=== PATIENT | male | born 2000 | race Caucasian/White ===

== ENCOUNTER 2021-04-29 19:33 | Emergency (ER) | payer BC, SELFPAY ==
[2021-04-29 19:40] VITALS: BP 120/70; PULSE 68; RESP 18; TEMP 36.7; O2SAT 100
--- NOTE | 2021-04-29 19:52 | ED.GENADUL_ITS ---
Discharge Plan Disposition Patient Disposition: HOME Condition: Stable Discharge Details Clinical Impression: Elbow pain, right, Epicondylitis syndrome of elbow Primary Care Provider: Unknown,Unknown ED Provider: Rayo Martinez Home Meds and New Rx's Prescriptions: No Action No Known Home Meds RF: 0 Discharge Instructions Additional Instructions: You are likely suffering from inflammation of the tendons you can take 1000mg tylenol and 600mg ibuprofen every 6 hours for pain as needed follow up as scheduled with orthopedics if you feel more ill, have fevers or difficulty breathing return to the emergency department Medical Decision Making 20 yo with no chronic medical problems comes in with right elbow pain starting earlier this week. He plays for a baseball team and states he has had discomfort in the elbow for awhile but has increased the past few days when throwing a ball. He states he went to [place] [facility] and states he had an xray this week that showed no concerning findings per the patient and is scheduled to see ortho and have an mri this week. He has no swelling or visible/palpable deformity of the elbow and localizes it to the medial part of the elbow. He has tenderness over the medial epicondyle and pain with forced flexion and pronation of the forearm and wrist and intact distal sensation and range of motion and normal pulses. No tenderness of the shoulder. His exam is consistent with likely epicondylitits. Has not tried nsaids. Offered to do another xray which he declined and I feel is reasonable given no falls or trauma and has had an xray already that was unremarkable. Advised to keep his appointment with ortho and dosing for nsaids/tylenol given and return precautions given Differential Diagnosis Differential Diagnosis: overuse, tendonitis, epicondylitits HPI General Date/Time Provider Initiated Documentation: 04/29/21 19:35 . History of Present Illness 20 year old M presents to the emergency department with the chief complaint of right elbow pain, described as moderate, Quality is described as aching, and is localized to the right and upper extremity. Patient reports no radiation. Patient started experiencing this day(s) (3) and it has been constant. No relieving factors improve symptom(s), and Rest improves symptom(s), Movement worsens symptoms . Patient notes no other symptoms.. Patient did receive the following treatments prior to arrival, other (tylenol) Related Data Home Medications Medication Instructions Recorded Confirmed Unknown [No Known Home Meds] 04/29/21 04/29/21 Allergies Allergy/AdvReac Type Severity Reaction Status Date / Time No Known Allergies Allergy Unverified 04/29/21 19:44 General Stated Complaint: Orthopedic SOWMYA: 4 Review of Systems All systems reviewed & are unremarkable except as noted in HPI and below Constitutional Constitutional: Denies chills, Denies fever(s) and Denies weakness Cardiovascular Cardiovascular: Denies chest pain and Denies dyspnea Respiratory Respiratory: Denies cough and Denies dyspnea Gastrointestinal Gastrointestinal: Denies abdominal pain, Denies nausea and Denies vomiting Neurologic Neurologic: Denies weakness PFSH All Active Problems (Updated 04/29/21 @ 19:55 by Rayo Martinez MD) Elbow pain, right (Acute) Epicondylitis syndrome of elbow (Acute) Social History Smoking/Tobacco Use Status: Never Smoking risk assessment performed?: Yes Alcohol Intake: never Drug use: Never Substance use type: does not use Do you feel safe at home: Yes Do you feel safe in your relationship?: Yes Exam Const General: no acute distress Orientation: alert HENMT Head: normal to inspection Ears: external ears normal General nose exam: external nose normal Mouth: moist mucous membranes Eyes General: appearance normal, both eyes and all related structures Neck Neck: normal visual inspection Resp Effort & Inspection: normal respiratory effort and able to speak in complete sentences Cardio Rate: regular rate Skin General skin exam: no rashes or lesions noted Neuro General: patient alert and patient oriented x3 Extrem General: normal to inspection Psych Mental Status: mental status grossly normal Course Vital Signs Vital signs: Vital Signs Temperature 36.7 C 04/29/21 19:40 Pulse 68 04/29/21 19:40 Respiratory Rate 18 04/29/21 19:40 Blood Pressure 120/70 04/29/21 19:40 Pulse Oximetry 100 04/29/21 19:40 Temperature 36.7 C 04/29/21 19:40 Temperature Source Tympanic 04/29/21 19:40 Pulse 68 04/29/21 19:40 Respiratory Rate 18 04/29/21 19:40 Respiratory Effort 04/29/21 19:42 Blood Pressure 120/70 04/29/21 19:40 Blood Pressure Position Supine 04/29/21 19:40 Pulse Oximetry 100 04/29/21 19:40 Oxygen Delivery Method Room Air 04/29/21 19:40 Oxygen Flow Rate 0 04/29/21 19:40 Pain Level 9 04/29/21 19:40
[2021-04-29] MEDS: Ibuprofen 600 MG TAB PO (20:01)
== END 2021-04-29 20:05 | disposition home or self-care (01) ==
PROVIDERS: Emergency Provider Emergency Medicine
DX: M25.521 Pain in right elbow (principal); M77.01 Medial epicondylitis, right elbow
CPT/HCPCS: 99282

== ENCOUNTER 2022-11-22 10:04 | Emergency (ER) | payer BC, SELFPAY ==
[2022-11-22 10:09] VITALS: BP 124/81; PULSE 61; RESP 20; TEMP 36.8; O2SAT 99
--- NOTE | 2022-11-22 10:26 | ED.GENADUL_ITS ---
Discharge Plan Disposition Patient Disposition: Home Condition: Stable Discharge Details Clinical Impression: Acute pain of left shoulder Primary Care Provider: Unknown,Unknown ED Provider: Daniel Israel Home Meds and New Rx's Prescriptions: No Action No Known Home Meds Discharge Instructions Instructions: Shoulder Pain (ED) Additional Instructions: Please use sling for the next 1 week. Take your arm out of the sling at least 4 times a day to perform pendulum exercises as reviewed. Rest your arm until complete resolution of symptoms. No sports. Please take ibuprofen over the counter. Take 600mg by mouth every 6 hours as needed for pain. Please take acetaminophen (tylenol) - 650mg every 6 hours by mouth as needed for pain. Please contact your primary care physician to arrange follow-up. Return to the ER immediately for any worsening or new concerning symptoms. Diagnostic studies were not performed today but may be necessary if pain does not improve as expected. Medical Decision Making 22-year-old male with a prior presents with chief complaint of left shoulder pain that started after weightlifting 2 days ago. Patient notes he was bench pressing but does not recall any specific injury to his shoulder. No direct trauma. Later that night he developed pain in his shoulder that has persisted. Pain is worse with movement. No associated numbness or tingling. No fever. No other joint pain. Patient is tender on palpation of the shoulder and has pain with range of motion. No other inflammatory changes. Suspect rotator cuff injury versus sprain strain versus other. Plan for supportive care including rest with sling as well as NSAIDs and ice. Patient was encouraged to remove shoulder from sling and perform pendulum exercises which were reviewed with him. He was advised to not play sports or participate in any activities that worsen pain until completely resolved. Diagnostic imaging not indicated at this time. Patient understands that if pain does not improve as expected additional diagnostic testing may be necessary. He was encouraged to return immediately should have any worsening or new concerning symptoms. HPI General Mode of arrival: ambulatory . Date/Time Provider Initiated Documentation: 11/22/22 10:16 . Limitations to Documentation: no limitations . Information obtained by: patient . History of Present Illness 22 year old M presents to the emergency department with the chief complaint of left shoulder pain, described as moderate, Quality is described as sharp, and is localized to the left. Patient reports no radiation. Patient started experiencing this day(s) (1) and it has been constant. Movement improves symptom(s), No exacerbating factors reported . Patient notes no other symptoms.. Patient did receive the following treatments prior to arrival, NSAID (3am) Related Data Home Medications Medication Instructions Recorded Confirmed Unknown [No Known Home Meds] 04/29/21 11/22/22 Allergies Allergy/AdvReac Type Severity Reaction Status Date / Time No Known Allergies Allergy Unverified 11/22/22 10:12 General Stated Complaint: Orthopedic SOWMYA: 4 Review of Systems Constitutional Constitutional: Denies weakness Musculoskeletal Musculoskeletal: Reports as per HPI Neurologic Neurologic: Denies sensory deficit and Denies weakness PFSH All Active Problems Acute pain of left shoulder (Acute) Social History Smoking/Tobacco Use Status: Never Smoking risk assessment performed?: Yes Alcohol Intake: never Drug use: Never Substance use type: does not use Do you feel safe at home: Yes Do you feel safe in your relationship?: Yes Exam Const General: cooperative and healthy appearing Orientation: alert and awake Cardio Rate: regular rate Rhythm: regular rhythm Pulses: radial pulses present Skin General skin exam: no rashes or lesions noted (LUE) Extrem Left upper extremity: shoulder/upper arm Details: tenderness (over lateral shoulder), axillary nerve sensory function normal and abnormal ROM Details: pain with active ROM Details: in ABduction and in internal rotation; no unsual warmth, elbow/forearm Details: normal to inspection, wrist Details: normal to inspection and hand Details: normal to inspection Course Vital Signs Vital signs: Vital Signs Temperature 36.8 C 11/22/22 10:09 Pulse 61 11/22/22 10:09 Respiratory Rate 20 11/22/22 10:09 Blood Pressure 124/81 11/22/22 10:09 Pulse Oximetry 99 11/22/22 10:09 Temperature 36.8 C 11/22/22 10:09 Temperature Source Oral 11/22/22 10:09 Pulse 61 11/22/22 10:09 Respiratory Rate 20 11/22/22 10:09 Respiratory Effort Normal 11/22/22 10:13 Blood Pressure 124/81 11/22/22 10:09 Blood Pressure Position Sitting 11/22/22 10:09 Pulse Oximetry 99 11/22/22 10:09 Oxygen Delivery Method Room Air 11/22/22 10:09 Oxygen Flow Rate 0 11/22/22 10:09 Pain Level 8 11/22/22 10:13
[2022-11-22] MEDS: Ibuprofen 600 MG TAB PO (10:42)
[2022-11-22] MEDS: Acetaminophen 325 MG TAB 650 MG PO (10:42)
== END 2022-11-22 11:02 | disposition home or self-care (01) ==
PROVIDERS: Emergency Provider Student in an Organized Health Care Education/Training Program
DX: M25.512 Pain in left shoulder (principal)
CPT/HCPCS: 99282; 99283

== ENCOUNTER 2023-06-18 11:15 | Emergency (ER) | payer BC, SELFPAY ==
[2023-06-18 11:19] VITALS: BP 131/54; PULSE 67; RESP 18; TEMP 36.4; O2SAT 99
--- NOTE | 2023-06-18 11:55 | ED.GENADUL_ITS ---
Discharge Plan Disposition Patient Disposition: Home Condition: Stable Discharge Details Clinical Impression: Laryngitis Primary Care Provider: Unknown,Unknown ED Provider: Rayo Martinez Home Meds and New Rx's Prescriptions: New prednisone 20 mg tablet 60 mg PO DAILY 4 Days Qty: 12 0RF amoxicillin 500 mg tablet 500 mg PO BID Qty: 20 0RF Discharge Instructions Additional Instructions: If you are not improving with the 2 medications in 1 week follow-up with your primary care provider If you feel more ill, have severe worsening pain or inability to swallow liquids return to the emergency department HPI General Mode of arrival: ambulatory . Date/Time Provider Initiated Documentation: 06/18/23 11:39 . Limitations to Documentation: no limitations . Information obtained by: patient . History of Present Illness 22 year old M presents to the emergency department with the chief complaint of hoarse voice, described as moderate, Patient started experiencing this week(s) (2) and it has been constant. No relieving factors improve symptom(s), No exacerbating factors reported . Patient notes no other symptoms.; denies chest pain and fever/chills. Patient did receive the following treatments prior to arrival, none Related Data Home Medications Medication Instructions Recorded Confirmed amoxicillin 500 mg tablet 500 mg PO BID #20 tabs 06/18/23 prednisone 20 mg tablet 60 mg (3 x 20 mg) PO DAILY 4 days 06/18/23 #12 tabs Previous Rx's Medication Instructions Recorded amoxicillin 500 mg tablet 500 mg PO BID #20 tabs 06/18/23 prednisone 20 mg tablet 60 mg (3 x 20 mg) PO DAILY 4 days 06/18/23 #12 tabs Allergies Allergy/AdvReac Type Severity Reaction Status Date / Time No Known Allergies Allergy Unverified 06/18/23 11:21 General Stated Complaint: Sorethroat SOWMYA: 4 Review of Systems All systems reviewed & are unremarkable except as noted in HPI and below Constitutional Constitutional: Denies chills, Denies fever(s) and Denies weakness Cardiovascular Cardiovascular: Denies chest pain and Denies dyspnea Respiratory Respiratory: Denies cough and Denies dyspnea Gastrointestinal Gastrointestinal: Denies abdominal pain, Denies nausea and Denies vomiting Genitourinary Genitourinary: Denies dysuria Musculoskeletal Musculoskeletal: Denies joint swelling Integumentary/Breasts Skin/Breast: Denies rash Neurologic Neurologic: Denies weakness Exam Const General: no acute distress Orientation: alert HENMT Head: normal to inspection Ears: external ears normal and TM's normal bilaterally General nose exam: external nose normal Mouth: moist mucous membranes Throat: uvula midline Eyes General: appearance normal, both eyes and all related structures Neck Neck: normal visual inspection Resp Effort & Inspection: normal respiratory effort and able to speak in complete sentences Cardio Rate: regular rate Skin General skin exam: no rashes or lesions noted Neuro General: patient alert and patient oriented x3 Extrem General: normal to inspection Psych Mental Status: mental status grossly normal Course Vital Signs Vital signs: Vital Signs Temperature 36.4 C L 06/18/23 11:19 Pulse 67 06/18/23 11:19 Respiratory Rate 18 06/18/23 11:19 Blood Pressure 131/54 L 06/18/23 11:19 Pulse Oximetry 99 06/18/23 11:19 Temperature 36.4 C L 06/18/23 11:19 Pulse 67 06/18/23 11:19 Respiratory Rate 18 06/18/23 11:19 Blood Pressure 131/54 L 06/18/23 11:19 Blood Pressure Position Sitting 06/18/23 11:19 Pulse Oximetry 99 06/18/23 11:19 Oxygen Delivery Method Room Air 06/18/23 11:19 Oxygen Flow Rate 0 06/18/23 11:19 Lab/Test Results Lab/Test Results: 06/18/23 11:20 Tonsil - Not Specified Group A Streptococcus Culture - Pending POC Strep Test-MARIANO(Rapid) Start: 06/18/23 11:29 Freq: .Rapid Strep Test Status: Active Protocol: Document 06/18/23 11:30 FRANCISCO (Rec: 06/18/23 11:30 FRANCISCO [id number]) Strep test-MARIANO(Rapid)-POC POC-Strep test-MARIANO (Rapid) Negative POC-Strep test-MARIANO (Rapid) Negative Medical Decision Making -year-old male who denies any chronic medical problems comes in with 2 to 3 weeks of a hoarse voice, denies any significant pain or fevers, is swallowing and breathing normally. Has not tried any [id number] remedies. Alert and oriented x 4 on arrival and appears well in no distress swallowing and breathing normally, no drooling. He does she appear to have a hoarse voice. Posterior pharynx has mild erythema, midline uvula, no submandibular swelling, no pain over the hyoid or restricted neck movements. No findings on exam to suggest epiglottitis, retropharyngeal abscess, peritonsillar abscess. Strep test is negative but given prolonged period of time with the symptoms will treat with amoxicillin and also short course of steroid. He is stable for discharge, advised to follow-up with his primary care provider if not better in a week or 2 and return precautions given Differential Diagnosis Differential Diagnosis: Pharyngitis, pharyngitis Quality:SDOH Health Related Social Needs: No Data to Display PFSH All Active Problems (Updated 06/18/23 @ 11:58 by Rayo Martinez MD) Laryngitis (Acute) Social History Smoking/Tobacco Use Status: Never Smoking risk assessment performed?: Yes Alcohol Intake: never Drug use: Never Substance use type: does not use Do you feel safe at home: Yes Do you feel safe in your relationship?: Yes
== END 2023-06-18 12:15 | disposition home or self-care (01) ==
PROVIDERS: Emergency Provider Emergency Medicine
DX: J04.0 Acute laryngitis (principal); R07.0 Pain in throat
CPT/HCPCS: 99283; 87081

== ENCOUNTER 2023-07-24 13:47 | Emergency (ER) | payer BC, SELFPAY ==
[2023-07-24 14:00] VITALS: BP 144/55; PULSE 60; RESP 20; TEMP 37.2; O2SAT 97
--- NOTE | 2023-07-24 15:30 | ED.GENADUL_ITS ---
Discharge Plan Disposition Patient Disposition: Home Condition: Stable Discharge Details Clinical Impression: Voice hoarseness Primary Care Provider: Unknown,Unknown ED Provider: Kelly Patel Home Meds and New Rx's Prescriptions: New methylprednisolone [Medrol (Skip)] 4 mg tablets,dose pack See Rx Instructions .ROUTE .COMPLEX Qty: 21 0RF Rx Instructions: orally per package directions loratadine 10 mg tablet 10 mg PO DAILY Qty: 90 2RF pantoprazole 20 mg tablet,delayed release (DR/EC) 20 mg PO DAILY Qty: 90 2RF No Action amoxicillin 500 mg tablet 500 mg PO BID Qty: 20 0RF Discharge Instructions Additional Instructions: * Please schedule appointment to follow-up with ENT * Start medications provided to see if this makes a difference or helps your symptoms HPI General Date/Time Provider Initiated Documentation: 07/24/23 14:07 . Limitations to Documentation: no limitations . Information obtained by: patient . HPI Narrative: 23-year-old gentleman without significant past medical history presents for evaluation of voice hoarseness. He reports that the symptoms have been ongoing for the last 2 months. He was previously treated with an antibiotic and steroid. He reports some improvement during the time that he was on the steroid. But he reports that he has not had a normal voice since then. He states that symptoms started after he on prior to game. He thought that he had yelled too much. He states that he generally does not yell that often or use his voice. He denies smoking, vaping or alcohol use. He denies any significant URI symptoms. He denies any sore throat. He was recently evaluated in urgent care and referred to ENT, but cannot see them until September. Related Data Home Medications Medication Instructions Recorded Confirmed amoxicillin 500 mg tablet 500 mg PO BID #20 tabs 06/18/23 loratadine 10 mg tablet 10 mg PO DAILY #90 tabs 07/24/23 methylprednisolone 4 mg tablets in See Rx Instructions PO .COMPLEX 07/24/23 a dose pack (Medrol (Skip)) #21 dose pk pantoprazole 20 mg tablet,delayed 20 mg PO DAILY #90 tabs 07/24/23 release Previous Rx's Medication Instructions Recorded amoxicillin 500 mg tablet 500 mg PO BID #20 tabs 06/18/23 loratadine 10 mg tablet 10 mg PO DAILY #90 tabs 07/24/23 methylprednisolone 4 mg tablets in See Rx Instructions PO .COMPLEX 07/24/23 a dose pack (Medrol (Skip)) #21 dose pk pantoprazole 20 mg tablet,delayed 20 mg PO DAILY #90 tabs 07/24/23 release Allergies Allergy/AdvReac Type Severity Reaction Status Date / Time No Known Allergies Allergy Unverified 06/18/23 11:21 General Stated Complaint: Sorethroat SOWMYA: 4 Exam Narrative Exam Narrative: Review of Systems: All systems reviewed & are unremarkable except as noted in HPI and below Well-developed, no acute distress + Voice is hoarse NCAT PERRL, normal conjunctiva Bilateral TMs without significant effusion, erythema or bulging Posterior oropharynx with uvula midline, mild erythema, no tonsillar enlargement or exudate Trachea midline, no thyromegaly or other masses appreciated, no significant cervical adenopathy RRR Unlabored respiratory effort Nondistended abdomen Extremities w/o deformity, no cyanosis, no edema No rashes or lesions. no focal neurologic deficits Appropriate mood and affect Course Vital Signs Vital signs: Vital Signs Temperature 37.2 C 07/24/23 14:00 Pulse 60 07/24/23 14:00 Respiratory Rate 20 07/24/23 14:00 Blood Pressure 144/55 H 07/24/23 14:00 Pulse Oximetry 97 07/24/23 14:00 Temperature 37.2 C 07/24/23 14:00 Temperature Source Tympanic 07/24/23 14:00 Pulse 60 07/24/23 14:00 Respiratory Rate 20 07/24/23 14:00 Blood Pressure 144/55 H 07/24/23 14:00 Blood Pressure Position Sitting 07/24/23 14:00 Pulse Oximetry 97 07/24/23 14:00 Oxygen Delivery Method Room Air 07/24/23 14:00 Oxygen Flow Rate 0 07/24/23 14:00 Pain Level 0 07/24/23 14:00 Medical Decision Making Emergent evaluation of voice changes. Patient has no symptoms concerning for a URI at this time. He has a fairly benign and reassuring examination other than his voice changes. He did denies any concerning environmental exposures. Consider nasal drainage or reflux as a cause of ongoing symptoms. Will treat with Medrol Dosepak for longer course of steroids. Will also treat with Claritin and PPI to see if these improve his symptoms. Encouraged the patient to go ahead and schedule the appointment with the ENT and if he feels like he needs to be seen sooner, he can try the [facility] or [facility] systems. He would likely benefit from laryngoscopy to ensure there is no concerning abnormality of the vocal cords on visual inspection. Medical Records Medical records reviewed: Yes I reviewed the patient's medical records. Quality:SDOH Health Related Social Needs: No Data to Display PFSH All Active Problems Voice hoarseness (Acute) Social History Smoking/Tobacco Use Status: Never Smoking risk assessment performed?: Yes Alcohol Intake: never Drug use: Never Substance use type: does not use Do you feel safe at home: Yes Do you feel safe in your relationship?: Yes
[2023-07-24 15:34] VITALS: BP 144/55; PULSE 60; RESP 20; TEMP 37.2; O2SAT 97
== END 2023-07-24 15:37 | disposition home or self-care (01) ==
PROVIDERS: Emergency Provider Emergency Medicine
DX: R49.0 Dysphonia (principal)
CPT/HCPCS: 99283